=== PATIENT | female | born 1975 | race Two or more races ===

== ENCOUNTER → 2022-10-10 11:48 | Outpatient (BNVA) | payer OTHER, SELFPAY | PROVIDERS: PCP Physician Assistant Medical; Visit Provider Internal Medicine | DX: Z13.89 Encounter for screening for other disorder (principal) ==

== ENCOUNTER 2022-10-10 12:23 | Outpatient (REF) | payer OTHER, SELFPAY ==
[2022-10-10 14:28] LABS: Free T4 (Free Thyroxine) 1.07 ng/dL (0.71-1.85); Thyroid Stimulating Hormone 1.12 uIU/mL (0.32-4.0)
== END 2022-10-10 12:24 | disposition home or self-care (01) ==
LOC: HO.10HDL 12:23
PROVIDERS: Visit Provider Internal Medicine
DX: E04.2 Nontoxic multinodular goiter (principal)
CPT/HCPCS: 36415; 84439; 84443

== ENCOUNTER 2023-01-31 08:09 | Outpatient (REF) | payer OTHER, SELFPAY ==
--- NOTE | ~2023-01-31 | US_ITS ---
Ultrasound-guided biopsy of the nodule in the left lobe of the thyroid gland INDICATIONS: 1.2 x 0.7 x 0.88 cm nodule in the left lobe of the thyroid gland After informed and written consent was obtained an official timeout was performed immediately prior to the procedure. PROCEDURE: The skin was prepped and draped in usual fashion. 1% Xylocaine was used for local anesthetic. Under ultrasound guidance 6 needle aspirates were obtained from the nodule in the left lobe of the thyroid gland. A 25-gauge needle was utilized. US/US guided fine needle asp Impression: Ultrasound-guided needle aspiration of the nodule in left lobe of the thyroid gland
[2023-01-31] MEDS: Lidocaine HCl 1 % 20 ML VIAL 5 ML SUBCUT (11:41)
== END 2023-01-31 08:10 | disposition home or self-care (01) ==
LOC: HO.US 08:09
PROVIDERS: PCP Physician Assistant Medical; Visit Provider Internal Medicine
DX: E04.2 Nontoxic multinodular goiter (principal)
CPT/HCPCS: 10005; 88172; 88173; 88177

== ENCOUNTER → 2023-01-31 08:12 | Outpatient (BNV) | payer OTHER, SELFPAY | PROVIDERS: PCP Physician Assistant Medical; Visit Provider Radiology Vascular & Interventional Radiology | DX: E04.1 Nontoxic single thyroid nodule (principal) | CPT/HCPCS: 10005 ==

== ENCOUNTER 2023-02-28 14:29 | Outpatient (REF) | payer OTHER, SELFPAY ==
--- NOTE | ~2023-02-28 | US_ITS ---
Ultrasound-guided biopsy of the left thyroid nodule INDICATIONS: Atypical cells on the previous biopsy dated 01/31/2023 After informed and written consent was obtained an official timeout was performed immediately prior to the procedure. PROCEDURE: The skin was prepped and draped in the usual fashion. 1% Xylocaine was used for local anesthetic. Under ultrasound guidance four needle aspirates were obtained. The specimens were sent to the cytology department for analysis. US/US guided fine needle asp IMPRESSION: Ultrasound-guided biopsy of the left thyroid nodule
[2023-02-28] MEDS: Lidocaine HCl 1 % MPF 5 ML VIAL SUBCUT (15:37)
== END 2023-02-28 14:30 | disposition home or self-care (01) ==
LOC: HO.US 14:29
PROVIDERS: PCP Physician Assistant Medical; Visit Provider Internal Medicine
DX: E04.2 Nontoxic multinodular goiter (principal)
CPT/HCPCS: 10005; 88173

== ENCOUNTER → 2023-02-28 14:45 | Outpatient (BNV) | payer OTHER, SELFPAY | PROVIDERS: PCP Physician Assistant Medical; Visit Provider Radiology Vascular & Interventional Radiology | DX: E04.1 Nontoxic single thyroid nodule (principal) | CPT/HCPCS: 10005 ==

== ENCOUNTER 2023-03-20 15:23 | Outpatient (AMB) | payer OTHER, SELFPAY ==
--- NOTE | 2023-03-20 15:24 | A.OFFVIS_ITS ---
Intake Vital Signs 03/20/23 15:26 Height 5 ft 5 in Weight 182 lb 15.739 oz BMI 30.4 BP 110/84 Blood Pressure Location Lt brachial Position Sitting Pulse 92 Pulse Source Pulse Oximeter Intake Visit Reasons: FNA results Intake Note: Patient present today for FNA results. 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 for multinodular thyroid at the request of PCP.. The patient last saw Dr. Mulligan on 10/10/2022 Was initially diagnosed with multinodular thyroid in 2020. Had another US of the thyroid 01/19/2022 which revealed a 1.1 cm left mid pole thyroid nodule. Currently denies any dysphagia but does report occasional hoarseness of voice. Denies symptoms of hyper or hypothyroidism. Denies any history of head or neck irradiation. Does have a family history of thyroid cancer in her Mother. Labs: No recent pertinent labs Thyroid, left, nodule, fine needle aspiration biopsy (cytology): -[facility] Classification: Non-christopher gnostic (category 1) -Description: Specimen processed and exa mined, but non-diagnostic due to insufficient follicular cell cellularity. Rare follicular cells, rare colloid, scattered lymphocytes, red blood cells, few macrophages, and few neutrophils present. A repeat aspiration should be considered if clinically indicated. Clinical History Atypical cells on previous bx 01/31/2023, 1.3cm nodule Material Received FNA of left thyroid nodule Gross Description 30cc of Cytolyte with bloody fluid. Thin Prep preapared. A portion of the specimen is rinsed in Afirma. NOTE: Unless otherwise stated, all tissue is formalin-fixed and paraffin- embedded. Some or all of the immunohistochemical tests reported herein may have been developed and their performance characteristics determined by [facility]. They have not been cleared or approved by the U.[place]. Food and Drug Administration (FDA). However, the FDA has determined that such clearance or approval is not necessary. This laboratory is certified under the Clinical Laboratory Improvement Amendments of Patient: Indigo Moore Age/Sex: 47/F MR#: [id number] Page 1 of 2 [facility] Medical History Arthritis HTN (hypertension) Multinodular thyroid Vitamin D deficiency Surgical History Hx of tubal ligation Hx of hysterectomy Hx of tonsillectomy Family History Father Heart disease Mother Heart disease Thyroid cancer HTN (hypertension) Uterine cancer Hx of thyroidectomy Pacemaker Social History Alcohol intake: current Alcohol intake frequency: holidays/special occasions only Patient Tobacco Use Status: Never used Tobacco Physical Exam Vital Signs: Last Vital Signs Pulse 92 03/20/23 15:26 BP 110/84 03/20/23 15:26 BMI result Body Mass Index 30.4 Const Other: Thyroid gland is normal size weighs about 15 g. There are no thyroid nodules p alpated Assessment & Plan Assessment & Plan (1) Multinodular thyroid: Code(s): E04.2 - Nontoxic multinodular goiter Plan: This is a 47-year-old female with a history of a left thyroid nodule status post FNA x2 1st aspirate AUS and not sent for Afirma and 2nd aspirate indeterminate. She is clinically biochemically euthyroid. After long discussion of options with the patient including reaspiration versus observation versus lobectomy, the patient is opting for reaspiration with possibly sending the specimen for affirma. Will send to Dr. Del Cid at [facility] for 2nd opinion and reaspiration. Orders: Referrals Endocrinology Referral E04.2 - Nontoxic multinodular goiter Coding Level of Care Code Est Pt Level 3 (13660) Diagnoses Multinodular thyroid E04.2
[2023-03-20 15:26] VITALS: BP 110/84; PULSE 92; BMI 30.4
== END 2023-03-20 16:06 | disposition home or self-care (01) ==
PROVIDERS: PCP Physician Assistant Medical; Visit Provider Internal Medicine Endocrinology, Diabetes & Metabolism
DX: E04.2 Nontoxic multinodular goiter (principal)
CPT/HCPCS: 99213

== ENCOUNTER → 2023-03-20 15:23 | Outpatient (BNVA) | payer OTHER, SELFPAY | PROVIDERS: PCP Physician Assistant Medical; Visit Provider Internal Medicine Endocrinology, Diabetes & Metabolism ==